=== PATIENT | male | born 1965 | race Caucasian/White ===

== ENCOUNTER 2017-09-17 04:41 | Emergency (ER) | payer SELFPAY ==
[~2017-09-17] VITALS: Ht 182.9 cm; Wt 102.3 kg
[2017-09-17 04:54] VITALS: Ht 182.9 cm; Wt 102.3 kg
[2017-09-17] MEDS ORDERED: PRINIVIL10 MG (04:55)
[2017-09-17] MEDS ORDERED: BAYER CHEWABLE81 MG (04:55)
[2017-09-17] MEDS ORDERED: ZOCOR10 MG (04:55)
[2017-09-17 05:45] LABS: BASOPHILS 0.3 % (0-2); EOSINOPHILS 0.9 % (0-7); HEMATOCRIT 41.9 % (42.0-54.0); HEMOGLOBIN 14.4 g/dL (13.5-17.5); IMMATURE GRANULOCYTES 0.7 % (0-5); LYMPHOCYTES 16.1 % (15-50); MCH 34.1 pg (26.0-34.0); MCHC 34.4 g/dL (31.0-37.0); MCV 99.3 fL (80.0-100.0); MEAN PLATELET VOLUME 10.6 fL (7.4-10.4); MONOCYTES 7.9 % (2-11); NEUTROPHILS 74.1 % (40-80); PLATELET COUNT 240 10x3/uL (130-400); RBC 4.22 10x6/uL (4.20-6.10); RDW 13.6 % (11.5-14.5); WBC 14.5 10x3/uL (4.8-10.8)
[2017-09-17 05:49] LABS: APPEARANCE CLEAR (CLEAR); BILIRUBIN NEGATIVE (NEGATIVE); COLOR YELLOW (YELLOW); GLUCOSE 250 mg/dL (NEGATIVE); KETONE NEGATIVE (NEGATIVE); NITRITE NEGATIVE (NEGATIVE); PROTEIN NEGATIVE (NEGATIVE); SPECIFIC GRAVITY 1.025 (1.005-1.020); UROBILINOGEN NORMAL (NORMAL)
[2017-09-17 05:51] LABS: ALBUMIN 3.7 g/dL (3.4-5.0); ANION GAP 11.3 mmol/L (8-16); BILIRUBIN - TOTAL 0.22 mg/dL (0.2-1.3); CREATININE - SERUM 1.2 mg/dL (0.6-1.3); POTASSIUM - SERUM 4.3 mmol/L (3.5-5.1); PROTEIN - SERUM 7.6 g/dL (6.4-8.2)
[2017-09-17] MEDS ORDERED: HYDROCODON-ACE1 EAC7 PO (06:55)
[2017-09-17] MEDS ORDERED: FLOMAX0.4 MG PO (06:55)
[2017-09-17 07:39] VITALS: BP 122/74
== END 2017-09-17 07:45 | disposition home or self-care (01) ==
LOC: D.ER 04:41
PROVIDERS: Family Medicine
DX: N20.1 Calculus of ureter (principal); I10 Essential (primary) hypertension; F17.200 Nicotine dependence, unspecified, uncomplicated